=== PATIENT | female | born 1980 | race African-American/Black ===

== ENCOUNTER 2016-12-01 19:46 | Emergency (ER) | payer OTHER ==
[~2016-12-01] VITALS: Ht 165.1 cm; Wt 68.9 kg
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
[~2016-12-01 19:46] MED LIST: CIPRO PO; CIPRO250 MG PO; FLONASE16 GM; GUAIFENESIN200 M1 PO; LORATADINE PO; NAPROSYN500 MG PO; ORUDIS75 M1 PO; PYRIDIUM PO
== END 2016-12-01 23:14 | disposition home or self-care (01) ==
LOC: CED 19:46 → CFTX 22:58 → CED 23:14
DX: S09.90XA Unspecified injury of head, initial encounter (principal); F17.200 Nicotine dependence, unspecified, uncomplicated; V43.52XA Car driver injured in collision with other type car in traffic accident, initial encounter; Y92.410 Unspecified street and highway as the place of occurrence of the external cause
CPT/HCPCS: 70450; 72040; 72072; 84703; 99284